=== PATIENT | female | born 2005 | race Caucasian/White ===

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

== ENCOUNTER → 2023-01-02 13:45 | Outpatient (BNVA) | payer BC, MEDICAID, SELFPAY | PROVIDERS: Family Provider Nurse Practitioner Family; PCP Nurse Practitioner Family; Visit Provider Nurse Practitioner Women's Health | DX: Z34.80 Encounter for supervision of other normal pregnancy, unspecified trimester (principal) | CPT/HCPCS: 81000 ==

== ENCOUNTER → 2023-01-15 11:35 | Outpatient (BNVA) | payer BC, MEDICAID, SELFPAY | PROVIDERS: Family Provider Nurse Practitioner Family; PCP Nurse Practitioner Family; Visit Provider Obstetrics & Gynecology | DX: O98.819 Other maternal infectious and parasitic diseases complicating pregnancy, unspecified trimester; A74.9 Chlamydial infection, unspecified; Z3A.36 36 weeks gestation of pregnancy | CPT/HCPCS: 81000; 87081 ==

== ENCOUNTER → 2023-01-23 11:00 | Outpatient (BNVA) | payer BC, MEDICAID, SELFPAY | PROVIDERS: Family Provider Nurse Practitioner Family; PCP Nurse Practitioner Family; Visit Provider Obstetrics & Gynecology | DX: Z34.80 Encounter for supervision of other normal pregnancy, unspecified trimester (principal) | CPT/HCPCS: 81000 ==

== ENCOUNTER → 2023-01-30 12:30 | Outpatient (BNVA) | payer BC, MEDICAID, SELFPAY | PROVIDERS: Family Provider Nurse Practitioner Family; PCP Nurse Practitioner Family; Visit Provider Obstetrics & Gynecology | DX: Z34.80 Encounter for supervision of other normal pregnancy, unspecified trimester (principal) | CPT/HCPCS: 81000 ==

== ENCOUNTER → 2023-02-05 11:50 | Outpatient (BNVA) | payer BC, MEDICAID, SELFPAY | PROVIDERS: Family Provider Nurse Practitioner Family; PCP Nurse Practitioner Family; Visit Provider Obstetrics & Gynecology | DX: Z34.80 Encounter for supervision of other normal pregnancy, unspecified trimester (principal) | CPT/HCPCS: 81000 ==

== ENCOUNTER → 2023-02-12 08:04 | Outpatient (BNVA) | payer BC, MEDICAID, SELFPAY | PROVIDERS: Family Provider Nurse Practitioner Family; PCP Nurse Practitioner Family; Visit Provider Obstetrics & Gynecology | DX: O48.0 Post-term pregnancy (principal); Z3A.40 40 weeks gestation of pregnancy | CPT/HCPCS: 76819; 81000 ==

== ENCOUNTER 2023-02-14 01:02 | Inpatient (IN) | payer BC, MEDICAID, SELFPAY ==
[2023-02-14] VITALS (45 sets, daily range): BP systolic 84–120; BP diastolic 53–81; PULSE 67–102; RESP 15–18; TEMP 35.8–36.8; O2SAT 97–100; BMI 25.2
[2023-02-14] MEDS: lactated ringers 1,000 ML 999 ML IV ×2 (01:31→08:33)
[2023-02-14 01:33] LABS: Basophils % 0.3 %; Eosinophils # 0.1 10^3/uL (0.0-0.8); Hematocrit 31.1 % (37.0-47.0); Hemoglobin 9.9 g/dL (11.5-15.3); Lymphocytes # 1.7 10^3/uL (1.5-6.5); Lymphocytes % 15.1 %; Mean Corpuscular HGB Conc 31.8 g/dL (30.0-36.0); Mean Corpuscular Hemoglobin 25.7 pg (28.0-34.0); Mean Corpuscular Volume 80.8 fl (81-99); Monocytes # 0.5 10^3/uL (0.2-0.9); Monocytes % 4.1 %; Neutrophils # 8.78 10^3/uL (1.8-8.0); Neutrophils % 79.1 %; Nucleated Red Blood Cells % 0 %; Platelet Count 298 10^3/cmm (130-400); Red Blood Count 3.85 10^6/uL (4.1-5.3); Red Cell Distribution Width 13.6 % (12.1-15.1); White Blood Count 11.1 10^3/uL (4.5-13.0)
[2023-02-14] MEDS: oxytocin 30 UNIT/500 ML BAG IV (08:33)
--- NOTE | 2023-02-14 08:48 | PM.HP ---
Providers/Chief Complaint Admitting Physician: Thiago Bee MD Chief Complaint: CONTRACTIONS History of Present Illness February 14, 2023, 0310 Pamela Manning is a 18 year old female ; EDC February 09, 2023 at 40 w 5 d no complications presents c/o painful UCs no bleeding, fluid leakage + active movements Medications/Allergies Home Medications Medication Instructions Recorded Confirmed Last Taken Type prenat.vits,forest,gwn-yqgw-zlncg 1 tab PO DAILY 07/31/22 02/14/23 02/13/23 12:00 History Allergies Allergy/AdvReac Type Severity Reaction Status Date / Time No Known Allergies Allergy Verified 02/14/23 00:23 PFSH Acute PFSH: Medical History No pertinent past medical history neghx: htn,dm,thyroid,dvt/pe PCP: None Surgical History No pertinent past surgical history Family History Grandmother Breast cancer Paternal--dx age 40 Colon cancer Maternal--dx age 64 Family/Other Breast cancer Maternal Aunt--dx age 30's Colon cancer Maternal Uncle--dx age 37 Grandfather Heart disease Maternal Denies family history of Ovarian cancer Diabetes Hypercholesteremia Hypertension Uterine cancer Thyroid disease Stroke Social History Smoking and tobacco status: former smoker Female Reproductive History: : 2 Vitals/I&O/Wt Last Vital Signs Temp 96.8 F L 02/14/23 07:35 Pulse 73 02/14/23 08:44 Resp 15 02/14/23 00:51 BP 94/53 02/14/23 08:44 O2 Del Method 02/14/23 00:52 02/13/23 02/14/23 02/14/23 22:59 06:59 14:59 Intake Total 1000 / 1000 Balance 1000 / 1000 Weight last 48 hrs Weight 161 lb Physical Exam Narrative: VS normal awake, alert, appropriate Cervix: 3-4 cm / 90 / -2 / posterior Data 02/14/23 01:17 Other data: External monitor: regular UCs heart tracing good variability, + accelerations A&P Assessment and plan (1) Term : 40 w 5 d fetus reassuring GBS negative (2) Active labor at term: plan admit to L&D expectant management Attestations Medical Necessity Statement*: patient at 40 w 5 d gestation, active labor Coding Level of Care Code Acute Code for Chg Fwd Diagnoses Term Z34.90 Active labor at term
--- NOTE | 2023-02-14 08:55 | P.PN_ITS ---
SPEECH LANGUAGE PATHOLOGY ASSISTANT Subjective Subjective: Interval history: 18 y.o. at 40 w 5 d admitted with active labor Labor: Station: -2 Amniotic Membrane Status: Intact Monitor Mode: External Contraction Pattern: Regular Status: Category I Vitals/I&O/Wt Last Vital Signs Temp 96.8 F L 02/14/23 07:35 Pulse 73 02/14/23 08:44 Resp 15 02/14/23 00:51 BP 94/53 02/14/23 08:44 O2 Del Method 02/14/23 00:52 02/13/23 02/14/23 02/14/23 22:59 06:59 14:59 Intake Total 1000 / 1000 Balance 1000 / 1000 Weight last 48 hrs Weight 161 lb Physical Exam Narrative: Cervix examined by me at 0750: 3-4 cm / 90 / -2 / posterior Data 02/14/23 01:17 Other data: External monitor: heart tracing good variability, + accelerations A&P Assessment and plan (1) Active labor at term: plan start pitocin augmentation Attestations Medical Necessity Statement*: patient at 40 w 5 d with active labor Coding Level of Care Code Acute Code for Chg Fwd Diagnoses Active labor at term
--- NOTE | 2023-02-14 09:21 | ANES.PREANE2 ---
Pre-Anesthetic Assessment Height/Weight: Height 1.7 m Weight 73.028 kg Temp Pulse Resp BP Pulse Ox O2 Del Method 97.0 F L 72 15 110/69 100 02/14/23 09:16 02/14/23 09:16 02/14/23 00:51 02/14/23 09:16 02/14/23 09:16 02/14/23 00:52 Preop Diagnosis: labor pain Epidural Familial anesthetic complications: None Last intake: ice chips Social No alcohol and No tobacco Exam alert, oriented x 3, clear to auscultation bilaterally and regular rate & rhythm Airway Mallampati: Class I Dentition: full GI Gastroesophageal Reflux Disease Anesthetic Plan ASA status: 2 Anesthesia: Regional (specify below) Risk of > 500 ml blood loss (7ml/kg in children): Yes, adequate IV access and fluids planned Medications/Allergies Home Medications Medication Instructions Recorded Confirmed Last Taken Type prenat.vits,forest,dxa-rfiv-khucs 1 tab PO DAILY 07/31/22 02/14/23 02/13/23 12:00 History Allergies Allergy/AdvReac Type Severity Reaction Status Date / Time No Known Allergies Allergy Verified 02/14/23 00:23 Current Medications Generic Name Dose Route Start Last Admin Trade Name Freq PRN Reason Stop Dose Admin Dextrose/Lactated Ringer's 1,000 mls @ 125 mls/hr 02/14/23 01:00 02/14/23 04:23 Dextrose 5%-Lactated Ringers IV Not Given .Q8H BILL Lactated Ringer's 1,000 mls @ 999 mls/hr 02/14/23 00:51 02/14/23 02:38 Lactated Ringers IV Infused .Q1H1M PRN Infusion Per L&D Rescitation Protocol Oxytocin 30 unit in 500 mls @ 1 mls/hr 02/14/23 08:30 02/14/23 08:33 Pitocin IV 2 milliunit/min .Q24H BILL 2 mls/hr Administration Protocol 1 MILLIUNIT/MIN Lactated Ringer's 1,000 mls @ 999 mls/hr 02/14/23 08:21 02/14/23 08:33 Lactated Ringers IV 999 mls/hr .Q1H1M PRN Administration See label comments [facility] Anesthesia Medical History No pertinent past medical history neghx: htn,dm,thyroid,dvt/pe PCP: None Surgical History No pertinent past surgical history Family History Grandmother Breast cancer Paternal--dx age 40 Colon cancer Maternal--dx age 64 Family/Other Breast cancer Maternal Aunt--dx age 30's Colon cancer Maternal Uncle--dx age 37 Grandfather Heart disease Maternal Denies family history of Ovarian cancer Diabetes Hypercholesteremia Hypertension Uterine cancer Thyroid disease Stroke Social History Smoking and tobacco status: former smoker Female Reproductive History : 2 Data Anesthesia 02/14/23 01:17 Short CBC 02/14/23 Range/Units 01:17 WBC 11.1 (4.5-13.0) 10^3/uL Hgb 9.9 L (11.5-15.3) g/dL Hct 31.1 L (37.0-47.0) % MCV 80.8 L (81-99) fl Plt Count 298 (130-400) 10^3/cmm Neut % (Auto) 79.1 % Neut # (Auto) 8.78 H (1.8-8.0) 10^3/uL Cardiac Studies: No Data to Display Anesthesia Procedures Epidural Time Out Performed: Yes Consents Signed: Procedure Consent Consent: requested by attending/covering physician, from patient, from other, risks and benefits reviewed and patient agrees to proceed Lumbar Level: L3-L4 Epidural position: sitting Epidural procedure: sterile prep of area, 1% lidocaine to numb the area, 18 g needle, negative for paresthesia passed, neg for paresthesia, test dose given, 1.5% xylocaine 1:200k epi (5 cc), 0.2% Ropivacaine bolus ml (5), placed PCEA, no systemic response, sterile dressing applied, L.U.D. no apparent complications and 0.2% Ropiavacaine @ mls/hr (13) Additional Comments: MARIBEL at 4 cm, threaded to 10 cm, decrease in pain of contractions from 6/10 to 1/10
[2023-02-14] MEDS: dextrose 5%-lactated ringers 1,000 ML 125 ML IV (09:30)
[2023-02-14] MEDS: ibuprofen 800 mg tablet PO ×2 (15:04→20:56)
[2023-02-14] MEDS: benzocaine-menthol 78 gm Canister 1 SPRAY TOPICAL (19:47)
[2023-02-14] MEDS: lanolin oint 7 gm 1 APPLIC TOPICAL (19:48)
[2023-02-14 22:53] LABS: Hematocrit 28.6 % (37.0-47.0); Hemoglobin 8.9 g/dL (11.5-15.3); Mean Corpuscular HGB Conc 31.1 g/dL (30.0-36.0); Mean Corpuscular Hemoglobin 25.6 pg (28.0-34.0); Mean Corpuscular Volume 82.4 fl (81-99); Mean Platelet Volume 9.8 fL (7.4-10.4); Platelet Count 277 10^3/cmm (130-400); Red Blood Count 3.47 10^6/uL (4.1-5.3); Red Cell Distribution Width 13.8 % (12.1-15.1); White Blood Count 8.1 10^3/uL (4.5-13.0)
[2023-02-15] MEDS: ibuprofen 800 mg tablet PO (09:19)
[2023-02-15] MEDS: prenatal vitamin Capsule 1 CAP PO (09:19)
[2023-02-15] MEDS: docusate sodium 100 mg Capsule PO (09:19)
--- NOTE | 2023-02-15 09:32 | PM.DELIVERY ---
Delivery Note: Date of delivery: February 14, 2023 Pre-delivery diagnoses: term , active labor Post-delivery diagnoses: , vigorous female Procedure: normal placenta and cord cord gases and blood obtained small second-degree perineal and left labial lacerations repaired Delivering Physician: Thiago Bee M.D. Estimated blood loss (mL): 300 Pre-Delivery Course: normal course Post-Delivery Status: stable History History History 2 Term 1 0 Miscarriages/Ectopic 0 Living Children 1 A&P Assessment and plan (1) Active labor at term: (2) Spontaneous vaginal delivery: Coding Level of Care Code Acute Code for Chg Fwd Diagnoses Active labor at term Spontaneous vaginal delivery O80 Time Spent (min) 60
[2023-02-15 09:40] VITALS: BP 99/72; PULSE 80; RESP 18; TEMP 36.7
--- NOTE | 2023-02-15 12:13 | PM.OBGYDC ---
Discharge Providers CRUSHER AND BINDER OPERATOR Date of Admission: 02/14/23 01:02 Date of Discharge: 02/15/23 Attending Provider at Admission: Thiago Bee MD Attending Provider at Discharge: Thiago Bee MD Primary CRUSHER AND BINDER OPERATOR: Michael Appiah M.D. Diagnoses at Discharge Discharge Diagnosis (1) Active labor at term: Status: Acute (2) Spontaneous vaginal delivery: Details from hospital stay: without any complications small second-degree perineal and left labial lacerations repaired Status: Acute Reason for Visit Reason for Visit: CONTRACTIONS Information Peripartum Data: Delivery Method: Vaginal complications: none Physical Exam Urinary Catheter Management: Selby: Cath Placed During This Visit: yes, but has since been removed by the nurse Reason for Continuing Indwelling Catheter: Other Urinary Catheter Date of Insertion: 02/14/23 Urinary Catheter Time of Insertion: 09:20 Date Urinary Catheter Removed: 02/14/23 Time Urinary Catheter Discontinued: 10:05 History History History 2 Term 1 0 Miscarriages/Ectopic 0 Living Children 1 Discharge Data Studies Completed and Pending Laboratory Results WBC 8.1 10^3/uL (4.5-13.0) 02/14/23 22: RBC 3.47 10^6/uL (4.1-5.3) L 02/14/23 22: Hgb 8.9 g/dL (11.5-15.3) L 02/14/23 22: Hct 28.6 % (37.0-47.0) L 02/14/23 22: MCV 82.4 fl (81-99) 02/14/23 22: MCH 25.6 pg (28.0-34.0) L 02/14/23 22: MCHC 31.1 g/dL (30.0-36.0) 02/14/23 22: RDW 13.8 % (12.1-15.1) 02/14/23 22: Plt Count 277 10^3/cmm (130-400) 02/14/23 22: MPV 9.8 fL (7.4-10.4) 02/14/23 22:29 Neut % (Auto) 79.1 % 02/14/23 01:17 Lymph % (Auto) 15.1 % 02/14/23 01:17 [place] % (Auto) 4.1 % 02/14/23 01:17 Eos % (Auto) 1.0 % 02/14/23 01:17 Baso % (Auto) 0.3 % 02/14/23 01:17 Neut # (Auto) 8.78 10^3/uL (1.8-8.0) H 02/14/23 01:17 Lymph # (Auto) 1.7 10^3/uL (1.5-6.5) 02/14/23 01:17 [place] # (Auto) 0.5 10^3/uL (0.2-0.9) 02/14/23 01:17 Eos # (Auto) 0.1 10^3/uL (0.0-0.8) 02/14/23 01:17 Baso # (Auto) 0.0 10^3/uL (0.0-0.1) 02/14/23 01:17 Nucleated RBC % (auto) 0 % 02/14/23 01:17 Nucleated RBCs # 0.0 /100WBC 02/14/23 01:17 Vitals Last Vital Signs Temp 98.1 F 02/15/23 09:40 Pulse 80 02/15/23 09:40 Resp 18 02/15/23 09:40 BP 99/72 02/15/23 09:40 Pulse Ox 97 02/14/23 18:00 O2 Del Method 02/14/23 18:00 Discharge Plan Discharge Patient Disposition: Home Condition: Stable Prescriptions: No Action prenat.vits,forest,mik-fusw-uywtk Tablet 1 tab PO DAILY Discharge Orders: Discharge Order (Routine); Ordered 02/15/23 Ordered By: Thiago Bee Discharge Diet: Usual diet Discharge Activity: Resume usual activity Patient Instructions: Depression (DC), Bleeding (DC), Preeclampsia and Eclampsia After Delivery (GEN), OB Discharge Report, OB Food/Drug Interaction Guide, Opioid Safety, OB Home Care, OB Vaginal Deliveries - [facility] Discharge Attestations CRUSHER AND BINDER OPERATOR Time Spent in Discharge Care*: less than 30 min Coding Level of Care Code Acute Code for Chg Fwd Diagnoses Active labor at term Spontaneous vaginal delivery O80 Time Spent (min) 30
--- NOTE | 2023-02-15 13:43 | PC.NURSE ---
1130 THIS LOCK PLATER BROUGHT BABY INTO NURSERY AND HAVE BEEN IN NURSERY WITH BABY SO OTHER NURSING STAFF HAVE BEEN TAKING CARE OF HER. 1330 MO CAME INTO NURSERY TO BREASTFEED BABY. THIS WAS OK'S BY [facility] STAFF AFTR REPORT GIVEN.
[2023-02-15 14:09] VITALS: BP 110/72; PULSE 85; RESP 15; TEMP 36.8; O2SAT 98
--- NOTE | 2023-02-15 14:18 | ANE.PACU2 ---
Inpatient post-anesthesia follow up: Airway intact: Yes Vital signs: Temperature 98.3 F Pulse Rate 85 Respiratory Rate 15 Blood Pressure 110/72 Pulse Oximetry 98 Oxygen Delivery Me thod Room Air Oxygen Flow Rate Fraction of Inspir ed Oxygen Hydration adequate: Yes Nausea and vomiting: No Pain level: 1 Mental status: Baseline
== END 2023-02-15 13:45 | disposition home or self-care (01) | DRG 807 ==
LOC: OPOB 01:03 → OBGYN 01:03
PROVIDERS: Admitting Provider Obstetrics & Gynecology; Visit Provider Obstetrics & Gynecology
DX: O48.0 Post-term pregnancy (principal); Z37.0 Single live birth; O70.1 Second degree perineal laceration during delivery; Z3A.40 40 weeks gestation of pregnancy; Z87.891 Personal history of nicotine dependence
CPT/HCPCS: 36415; 51702; 59025; 59409; 85025; 85027; 99211; J2590; J2795; J7120; J7121

== ENCOUNTER → 2024-07-08 08:06 | Outpatient (BNVA) | payer BC, MEDICAID, SELFPAY | PROVIDERS: Visit Provider Nurse Practitioner Women's Health | DX: Z34.80 Encounter for supervision of other normal pregnancy, unspecified trimester (principal); N92.6 Irregular menstruation, unspecified | CPT/HCPCS: 81025; 84439; 84443; 84702 ==

== ENCOUNTER → 2024-07-22 13:05 | Outpatient (BNVA) | payer BC, MEDICAID, SELFPAY | PROVIDERS: Visit Provider Nurse Practitioner Women's Health | DX: Z36.87 Encounter for antenatal screening for uncertain dates (principal); O20.8 Other hemorrhage in early pregnancy; Z3A.01 Less than 8 weeks gestation of pregnancy | CPT/HCPCS: 76817; 84443; 84702; 85025 ==

== ENCOUNTER → 2024-07-29 11:56 | Outpatient (BNVA) | payer BC, MEDICAID, SELFPAY | PROVIDERS: Visit Provider Nurse Practitioner Women's Health | DX: O03.9 Complete or unspecified spontaneous abortion without complication (principal); Z3A.01 Less than 8 weeks gestation of pregnancy | CPT/HCPCS: 76817 ==

== ENCOUNTER → 2024-08-13 13:18 | Outpatient (BNVA) | payer BC, MEDICAID, SELFPAY | PROVIDERS: Visit Provider Obstetrics & Gynecology | DX: O03.4 Incomplete spontaneous abortion without complication (principal) | CPT/HCPCS: 84702; 85025 ==

== ENCOUNTER → 2024-09-03 11:16 | Outpatient (BNVA) | payer BC, MEDICAID, SELFPAY | PROVIDERS: Visit Provider Nurse Practitioner Women's Health | DX: O03.4 Incomplete spontaneous abortion without complication (principal) | CPT/HCPCS: 84702 ==

== ENCOUNTER → 2025-06-08 13:40 | Outpatient (BNVA) | payer BC, MEDICAID, SELFPAY | PROVIDERS: Visit Provider Nurse Practitioner Women's Health | DX: N92.6 Irregular menstruation, unspecified (principal) | CPT/HCPCS: 84702 ==

== ENCOUNTER → 2025-06-10 14:15 | Outpatient (BNVA) | payer BC, MEDICAID, SELFPAY | PROVIDERS: Visit Provider Nurse Practitioner Women's Health | DX: O03.4 Incomplete spontaneous abortion without complication (principal) | CPT/HCPCS: 84702 ==

== ENCOUNTER → 2025-06-25 14:28 | Outpatient (BNVA) | payer BC, MEDICAID, SELFPAY | PROVIDERS: Visit Provider Nurse Practitioner Women's Health | DX: Z36.9 Encounter for antenatal screening, unspecified (principal) | CPT/HCPCS: 76817 ==

== ENCOUNTER → 2025-07-31 15:10 | Outpatient (BNVA) | payer BC, MEDICAID, SELFPAY | PROVIDERS: Visit Provider Obstetrics & Gynecology | DX: Z34.90 Encounter for supervision of normal pregnancy, unspecified, unspecified trimester (principal); Z3A.12 12 weeks gestation of pregnancy | CPT/HCPCS: 80307; 84315; 84443; 85025; 86592; 86762; 86803; 86850; 86900; 87086; 87340; 87491; 87591; 87661; 87806 ==

== ENCOUNTER → 2025-08-14 10:15 | Outpatient (BNVA) | payer BC, MEDICAID, SELFPAY | PROVIDERS: Visit Provider Obstetrics & Gynecology | DX: Z34.80 Encounter for supervision of other normal pregnancy, unspecified trimester (principal); Z3A.14 14 weeks gestation of pregnancy | CPT/HCPCS: 84315; 88175 ==

== ENCOUNTER → 2025-08-26 07:43 | Outpatient (BNVA) | payer BC, MEDICAID, SELFPAY | PROVIDERS: Visit Provider Nurse Practitioner Women's Health | DX: Z34.92 Encounter for supervision of normal pregnancy, unspecified, second trimester (principal); Z3A.16 16 weeks gestation of pregnancy | CPT/HCPCS: 82105; 84315 ==

== ENCOUNTER → 2025-09-30 07:44 | Outpatient (BNVA) | payer BC, MEDICAID, SELFPAY | PROVIDERS: Visit Provider Obstetrics & Gynecology | DX: O09.292 Supervision of pregnancy with other poor reproductive or obstetric history, second trimester (principal); Z3A.21 21 weeks gestation of pregnancy | CPT/HCPCS: 84315 ==

== ENCOUNTER → 2025-10-21 13:40 | Outpatient (BNVA) | payer BC, MEDICAID, SELFPAY | PROVIDERS: Visit Provider Nurse Practitioner Women's Health | DX: O09.292 Supervision of pregnancy with other poor reproductive or obstetric history, second trimester (principal); Z3A.24 24 weeks gestation of pregnancy | CPT/HCPCS: 84315 ==